=== PATIENT | female | born 1960 | race American Indian/Alaskan Native ===

== ENCOUNTER 2016-02-22 16:30 | Emergency (ER) | payer SELFPAY ==
[2016-02-22 19:00] VITALS: BP 135/81
== END 2016-02-23 03:10 | disposition left against medical advice (07) ==
LOC: ED 16:30
DX: M79.605 Pain in left leg (principal); M79.604 Pain in right leg; Z53.21 Procedure and treatment not carried out due to patient leaving prior to being seen by health care provider

== ENCOUNTER 2016-07-25 13:10 | Emergency (ER) | payer MEDICAID ==
[2016-07-25 13:33] VITALS: BP 128/81
--- NOTE | 2016-07-25 13:40 | Emergency Department Report ---
Chief Complaint: Extremity Injury, Lower Stated Complaint: DONNELL LEG SPASMS Time Seen by Provider: 07/25/16 13:37 - HPI History of Present Illness: PT has leg pain x 1 year. PT went to today and was sent to ED for LLE swelling and to rule out DVT - ROS Review of Systems: + leg pain + leg swelling - Exam Vital Signs: Vital Signs 07/25/16 13:29 Temperature 98.7 F Pulse Rate 97 H Respiratory 16 Rate Blood Pressure 128/81 O2 Sat by Pulse 100 Oximetry Physical Exam: pt is alert and appropriate LLE edema noted + calf tenderness donnell MSE screening note: Focused history and physical exam performed. Due to findings the following was ordered: labs, us ED Disposition for MSE Condition: Stable
[2016-07-25 16:50] LABS: Basophils % (Auto) 0.4 % (0.0-1.8); Eosinophils % (Auto) 1.7 % (0.0-4.3); Hematocrit 46.7 % (30.3-42.9); Hemoglobin 14.8 gm/dl (10.1-14.3); Mean Corpuscular HGB Conc 32 % (30-34); Mean Corpuscular Hemoglobin 27 pg (28-32); Mean Corpuscular Volume 86 fl (79-97); Platelet Count 270 K/mm3 (140-440); Red Blood Count 5.45 M/mm3 (3.65-5.03); Red Cell Distribution Width 13.2 % (13.2-15.2); White Blood Count 13.8 K/mm3 (4.5-11.0)
[2016-07-25 19:50] LABS: Alanine Aminotransferase 11 units/L (7-56); Albumin 3.7 g/dL (3.9-5); Alkaline Phosphatase 128 units/L (35-129); Anion Gap 28 mmol/L; Blood Urea Nitrogen 9 mg/dL (7-17); Calcium 9.5 mg/dL (8.4-10.2); Carbon Dioxide 15 mmol/L (22-30); Chloride 107.6 mmol/L (98-107); Glucose 74 mg/dL (65-100); Potassium 3.9 mmol/L (3.6-5.0); Sodium 147 mmol/L (137-145); Total Protein 7.3 g/dL (6.3-8.2)
== END 2016-07-25 22:30 | disposition left against medical advice (07) ==
LOC: ED 13:10
DX: M79.605 Pain in left leg (principal); R60.0 Localized edema; Z53.21 Procedure and treatment not carried out due to patient leaving prior to being seen by health care provider
CPT/HCPCS: 36415; 80053; 83880; 85025; 93970